=== PATIENT | male | born 1970 | race Caucasian/White ===

== ENCOUNTER → 2024-12-20 | Outpatient (CLI) | payer MEDICAID, SELFPAY ==
--- NOTE | 2024-12-20 15:30 | XR_ITS ---
Examination: CT brain head without contrast. 2-D sagittal coronal reconstructions Date and time of exam:December 20, 2024 1505 hours INDICATIONS: Intractable headaches beginning 2 years ago. COMPARISON: 08/10/2023 CTDI: vol (mGy):58.7 DLP: (mGycm):1270 Technique: Multiple CT axial sections of the brain have been obtained, 5 mm slice thickness. Contrast has not been administered. 2-D sagittal, coronal reconstructions have been obtained Low dose protocols were performed. One or more of the following dose reduction techniques were used; automated exposure control, adjustment of the mA and/or KV according to patient size, use of iterative reconstruction technique. Findings: No significant ventricular enlargement. Intra-axial or extra-axial hemorrhage density is not seen. No mass effect or midline shift Basal cisterns are not remarkable. Fourth ventricle is midline. Cranial vault intact. Impression: Negative for acute hemorrhage, mass effect or midline shift Advise clinical correlation and follow-up accordingly
== END | disposition home or self-care (01) ==
PROVIDERS: PCP Physician Assistant; Referring Provider Physician Assistant; Visit Provider Physician Assistant
DX: G43.009 Migraine without aura, not intractable, without status migrainosus (principal)
CPT/HCPCS: 70450

== ENCOUNTER 2025-03-23 11:30 | Outpatient (RCR) | payer MEDICAID, SELFPAY ==
--- NOTE | 2025-02-28 09:17 | PTNOTE_ITS ---
PT OP Initial Eval Patient Information Outpatient Physical Therapy Treatment Date: 02/28/25 Visit Reasons: left shoulder pain Medical Diagnosis: Left Shoulder Pain Treatment Dx #1: Left Shoulder Mobility Deficits Treatment Dx #2: Left Shoulder Pain Start of Care: 02/28/25 Date of Onset: 6 months ago Smoking Status Smoking Status: Never smoker Initial Assessment Subjective: Pt is a 54 y/o male reports of chronic left shoulder pain (07/08) ~ 6 months ago. Pt had xray done but does not know the result. MRI has not been completed. Pt has limitation with driving, lifting, chores, self care, cooking, cleaning, and performing recreational activities. Objective: Left Shoulder AROM Flexion: 100 deg Abduction: 80 deg External Rotation: 45 deg Internal Rotation: 20 deg Left Shoulder PROM: all motions are WFL with end range pain in all plane Left Shoulder MMTs: grossly 3-/5 HBB: Thumb at L2 Assessment: Pt demonstrate left shoulder pain with mobility deficits leading to difficulty with ADLs. Pt will attempt physical therapy if pain persist Pt will be refer eduar k to provider for further consultation. Short Term and Custodial Goals 1) Increase left shoulder AROM WFL in 6 wks to be able to perform overhead ciara ons 2) Increase left shoulder MMTs: grossly to 3+/5 in 6 wks to be able to perform lifting activities 3) Decrease shoulder pain to 2/10 in 6 wks to be able to perform recreational activities 4) Increase left scapula MMTs grossly to 3+/5 in 6 wks to be able to perform chores 5) Indep with HEP Treatment Plan 1) Manual Therapy 2) Therapeutic Activities 3) Therapeutic Exercises 4) Modalities (ice, heat) Frequency and Duration: 2 x wk for 6 wks Certification Dates: 02/28/25 to 05/30/25 Procedure Charges OP PT Eval Mod Complex 30 minutes: Yes
--- NOTE | 2025-03-05 10:35 | PT.ODAYNRPT ---
PT Outpatient Daily Note OP Daily Note Outpatient Physical Therapy Treatment Date: 03/05/25 Visit Reasons: left shoulder pain Subjective: Pt's shoulder is about the same and feels stiff Objective: Please see flow chart for list of ther ex performed Assessment: cues to correct isometric exercises to recruit proper musculatures. post heat helped with pain Plan: Continue with PT Length of Time (minutes) of Treatment: 30 Minutes Procedure Charges Therapeutic Exercise 30 minutes: Yes
--- NOTE | 2025-03-08 10:06 | PT.ODAYNRPT ---
PT Outpatient Daily Note OP Daily Note Outpatient Physical Therapy Treatment Date: 03/08/25 Visit Reasons: left shoulder pain Subjective: No new complaints or concerns. Objective: Please see flow sheet for ther ex list. Assessment: Pt performs AAROM interventions with no complaints. Plan: Continue with POC. Length of Time (minutes) of Treatment: 30 Minutes Procedure Charges Therapeutic Exercise 30 minutes: Yes
--- NOTE | 2025-03-14 09:44 | PT.ODAYNRPT ---
PT Outpatient Daily Note OP Daily Note Outpatient Physical Therapy Treatment Date: 03/14/25 Visit Reasons: left shoulder pain Subjective: Pt's shoulder feels about the same. Pt notice he can move arm a little higher with overhead motions. Objective: Please see flow chart for list of ther ex performed Assessment: progress patient to YTB 3 way with good tolerance. Post heat helped with shoulder pain Plan: Continue with PT Length of Time (minutes) of Treatment: 30 Minutes Procedure Charges Therapeutic Exercise 30 minutes: Yes
--- NOTE | 2025-03-21 10:22 | PT.ODAYNRPT ---
PT Outpatient Daily Note OP Daily Note Outpatient Physical Therapy Treatment Date: 03/21/25 Visit Reasons: left shoulder pain Subjective: No new complaints. Objective: Please see flow sheet for ther ex list. Assessment: Progression of interventions completed with muscle fatigue but no c/o pain. Applied cold pack at end of session. Plan: Continue with POC. Length of Time (minutes) of Treatment: 30 Minutes Procedure Charges Therapeutic Exercise 30 minutes: Yes
--- NOTE | 2025-03-23 11:39 | PT.ODS1RPT ---
PT OP Progress/Discharge Note Date of Service: 03/23/25 Progress Note/DC Note Progress Note/Discharge Note: DC Note Patient Information Visit Reasons: left shoulder pain Medical Diagnosis: Left Shoulder Pain Treatment Dx #1: Left Shoulder Mobility Treatment Dx #2: Left Shoulder Pain Service Discharge Date: 03/23/25 Status Subjective: Pt's shoulder feels about the same and continues to have pain. Due to pain Pt still has limitation with lifting, overhead motions, chores, self care, cooking, cleaning, and recreational activities. Pt will like to stop physical therapy and return back to provider. Objective: Left Shoulder AROM: all motions are WNL Left Shoulder MMTs: grossly 4/5 Left Scapula MMTs: grossly 3+/5 HBB AROM: Thumb at T11 Assessment: Pt functional left shoulder mobility and strength, however, no change in pain leading to difficulty with ADLs. At this time Pt will no longer benefit from physical therapy due to minimal progress towards goals. Pt instructed to follow up with provider for further consultation; thank you for your referrals. Plan: D/C home and follow up with provider Procedure Charges Therapeutic Exercise 30 minutes: Yes
== END 2025-03-28 23:59 | disposition home or self-care (01) ==
LOC: CPTX 11:30
PROVIDERS: PCP Physician Assistant; Referring Provider Physician Assistant; Visit Provider Physician Assistant
DX: M25.512 Pain in left shoulder (principal); G89.29 Other chronic pain
CPT/HCPCS: 97110; 97162

== ENCOUNTER 2025-03-26 09:10 | Emergency (ER) | payer MEDICAID, SELFPAY ==
[2025-03-26 09:11] VITALS: BMI 32.5
[2025-03-26 09:24] VITALS: BP 152/90; PULSE 72; RESP 18; TEMP 37.1; O2SAT 96
--- NOTE | 2025-03-26 09:34 | XR_ITS ---
Examination: PA lateral chest 2 views TECHNIQUE: Upright PA lateral chest 2 views Exam date and time: March 26, 2025 1046 hours Comparison June 28, 2024 INDICATIONS: Coughing beginning one week ago. FINDINGS: Normal heart size Lungs are clear. The osseous structures are intact IMPRESSION: No active disease
[2025-03-26 10:03] LABS: Strep A Rapid Negative (Negative)
--- NOTE | 2025-03-26 11:09 | EDNOTE_ITS ---
<Statement entered by Naima Strange MD - 04/01/25 02:10> As co-signing physician, I was present and available for consult prn. I concur with the plan and care as documented by the midlevel provider. Upper Respiratory Inf. RME/HPI General Chief Complaint: Flu Like Symptoms Stated Complaint: FLU SYMPTOMS X1 WEEK Time Seen by Provider: 03/26/25 09:30 Arrival date/time: 03/26/25 09:10 54-year-old male with medical history significant for hypertension presents to the emergency department today for complaints of flulike symptoms ongoing x 1 week patient worse cough, congestion, runny nose, headache and bodyaches Limitations: no limitations Related Data Home Medications ?Medication ?Instructions ?Recorded ?Confirmed nitroglycerin 0.4 mg sublingual 0.4 mg SL PRN ##0 08/2907/22/21 tablet (Nitrostat) clopidogrel 75 mg tablet (Plavix) 75 mg PO DAILY ##0 1 12/25/11 07/22/21 aspirin 325 mg tablet 325 mg PO QDAY 08/01/1906/30 isosorbide dinitrate 10 mg tablet 10 mg PO DAILY 08/0107/22/21 sertraline 100 mg tablet 100 mg PO QDAY 08/01/1906/30 tizanidine 4 mg capsule 4 mg PO TID 08/01/19 1 topiramate 25 mg tablet 25 mg PO BID 08/01/19 zolpidem 10 mg tablet 10 mg PO HS 05/08/20 1 hydrocodone bitartrate 10 mg 10 mg PO QAM 05/27/20 capsule, oral only, extended rel 12 hr (Zohydro ER) Previous Rx's ?Medication ?Instructions ?Recorded lisinopril 10 mg tablet 10 mg PO QDAY #30 tabs 05/09 azithromycin 250 mg tablet See Rx Instructions PO .COM PLEX #6 07/22/21 (Zithromax) tabs loratadine 10 mg tablet 10 mg PO QDAY #30 tabs 10/03 promethazine-DM 6.25 mg-15 mg/5 mL 5 ml PO Q6H PRN cou gh #200 mL 11/05/22 oral syrup hydrocodone 5 mg-acetaminophen 325 1 tab PO BID PRN pa in #8 tabs 01/11/24 mg tablet gabapentin 100 mg capsule 100 mg PO TID #20 caps 01/21 ibuprofen 800 mg tablet (IBU) 800 mg PO Q8H #20 tabs 0 01/21/24 amoxicillin 875 mg-potassium 1 tab PO BID 7 days #14 t abs 03/26/25 clavulanate 125 mg tablet benzonatate 100 mg capsule 100 mg PO TID #14 caps 02/28 07/23 prednisone 20 mg tablet 20 mg PO BID 3 days #6 tabs 03/26/25 Allergies Allergy/AdvReac Type Severity Reaction Status Date / Time gabapentin Allergy Intermediate Nausea Verified 03/26/25 09:11 Review of Systems Review of Systems Systems Reviewed: All systems reviewed, normal except as documented Constitutional Constitutional: Reports system reviewed and no additional complaints, except as documented, Denies fever(s) and Reports headache(s) Eyes Eyes: Reports system reviewed and no additional complaints, except as documented and Denies blurry vision ENT Ears, Nose, Mouth, and Throat: Reports system reviewed and no additional complaints, except as documented, Reports facial pain, Reports headache(s), Reports nasal congestion, Reports nasal discharge, Reports sinus pain and Reports sinus pressure Cardiovascular Cardiovascular: Reports system reviewed and no additional complaints, except as documented, Denies chest pain and Denies dyspnea Respiratory Respiratory: Reports system reviewed and no additional complaints, except as documented, Denies chest congestion, Denies cough and Denies dyspnea Gastrointestinal Gastrointestinal: Reports system reviewed and no additional complaints, except as documented and Denies abdominal pain Integumentary/Breasts Skin/Breast: Reports system reviewed and no additional complaints, except as documented and Denies rash Neurologic Neurologic: Reports system reviewed and no additional complaints, except as documented, Reports as per HPI and Reports headache(s) Past Medical History Past Medical History NEUROLOGIC: Negative Neurological Disorders CARDIAC: Positive Cardiac Disorders, Myocardial Infarction, Angina and Hypertension; Negative Congestive Heart Failure RESPIRATORY: Positive Pneumonia and Sleep Apnea; Negative Chronic Obstructive Pulmonary Disease (COPD) or Asthma GASTROINTESTINAL: Negative Gastrointestinal Disorders or Hepatitis GENITOURINARY: Negative Genitourinary Disorders or Renal Disease MUSCULOSKELETAL: Negative Musculoskeletal Disorders ENDOCRINE: Negative Endocrine Disorders, Diabetes Mellitus Type 1 or Diabetes Mellitus Type 2 HEMATOLOGIC: Negative Blood Disorders or Sickle Cell Disease PSYCHO/SOCIAL: Positive Depression and Anxiety OTHER HISTORY: Positive Hospitalization and Chicken Pox; Negative Autoimmune Disease, Anesthesia Reactions, MRSA, VRSA, Vancomycin- Resistant Enterococci, Human Immunodeficiency Virus (HIV), Measles, Mumps, Rubella (Citizen [place] Measles), Pertussis, Clostridium Difficile or Cancer Family History FAMILY HISTORY: Positive Family Respiratory Disorders and Family Cardiac Disorders Surgical History SURGICAL: Positive Cardiac Surgery, Coronary Stent and Angiogram; Negative Endocrine Surgery, Thyroidectomy, Ear Surgery, Abdominal Surgery, Nephrectomy, Joint Replacement, Neurologic Surgery or Vasectomy Social History SMOKING STATUS: Former smoker SECOND HAND EXPOSURE: No SUBSTANCE USE: does not use ED Exam General Limitations: Present no limitations General appearance: Present alert and in no apparent distress Head Head exam: Present atraumatic Eye Eye exam: Present normal appearance, PERRL and EOMI ENT ENT exam: Present normal exam, normal oropharynx and mucous membranes moist Neck Neck exam: Present normal inspection, full ROM and trachea midline Chest Chest inspection: Present normal inspection and symmetric chest wall rise Respiratory Respiratory exam: Present normal lung sounds bilaterally Cardiovascular Cardiovascular exam: Present regular rate, normal rhythm and normal heart sounds Abdominal Exam Abdominal exam: Present soft and normal bowel sounds Extremities Exam Extremities exam: Present normal inspection and full ROM Back Exam Back exam: Present normal inspection and full ROM Neurological Exam Neurological exam: Present alert, oriented X3 and CN II-XII intact Psychiatric Psychiatric exam: Present normal affect and normal mood Skin Skin exam: Present warm, dry, intact and normal color Course Quality Measures none Orders Category Date Time Status Bedside Influenza A&B Antigen Test NOW Care 03/26/25 09:31 Completed XR chest 2V Stat Exams 03/26/25 09:34 Completed Strep A Rapid Stat Lab 03/26/25 09:44 Completed Vital Signs Vital signs: Vital Signs Temperature 98.7 F 03/26/25 09:24 Pulse Rate 72 03/26/25 09:24 Respiratory Rate 18 03/26/25 09:24 Blood Pressure 152/90 H 03/26/25 09:24 Pulse Oximetry (%) 96 03/26/25 09:24 Oxygen Delivery Method Room Air 03/26/25 09:24 O2 sats is 96% room air within normal limits Upper Respiratory Infection MDM Narrative MDM Narrative:: 54-year-old male with medical history significant for hypertension presents to the emergency department today for complaints of flulike symptoms ongoing x 1 week patient worse cough, congestion, runny nose, headache and bodyaches On exam patient well-appearing patient is not appear ill or toxic in no acute distress Imaging and lab work obtained no acute emergent findings noted Symptoms are consistent with sinus pressure and sinusitis patient be treated with accordingly Patient discharged home in no distress to follow-up with primary care doctor in the next 24 to 48 hours and for any worsening symptoms to return to the ER immediately Patient data External records reviewed:: [facility] previous records Clinical information provided by:: patient Social determinants that could affect healthcare access:: none Patient has the following chronic illnesses:: None How is presenting disease/condition affected by chronic disease/condition?: no chronic disease Evaluation data The following diagnostics were reviewed and interpreted by me:: lab results and radiology exam(s) Lab and/or radiology exams considered but not ordered:: Labs radiology obtained Interpretation Summary: Reviewed by me Medications / Prescriptions Medications or Prescriptions considered but not ordered:: Given Medication administrations:: Given Consultations Consultation(s) initiated? (list below): No Diagnosis Upper Respiratory Differential Diagnosis: upper respiratory infection, sinusitis, viral infection, bronchitis and influenza Most likely diagnosis given after review of the tests above:: URI Admission Indicated Admission indicated?: not indicated Admission Request Was there a request for admission?: No Disposition Plan Disposition Plan: Discharge Discharge Attestation Discharge Attestation: The patient and all family members were given an opportunity to ask questions and understood the discharge instructions. Discharge instructions specifically effects, indications for sooner follow up or return to the emergency department, and the expected course of current diagnosis. Patient condition: Stable Discharge Plan Plan Patient Disposition: HOME (Self Care) Disposition Comment: Stable Prescriptions/Referrals Prescriptions/Med Rec: New prednisone 20 mg tablet 20 mg PO BID 3 Days Qty: 6 0RF benzonatate 100 mg capsule 100 mg PO TID Qty: 14 0RF amoxicillin-pot clavulanate 875-125 mg tablet 1 tab PO BID 7 Days Qty: 14 0RF No Action nitroglycerin [Nitrostat] 0.4 MG tablet, sublingual 0.4 mg SL PRN Qty: 0 clopidogrel [Plavix] 75 MG tablet 75 mg PO DAILY Qty: 0 isosorbide dinitrate 10 mg Tablet 10 mg PO DAILY aspirin 325 mg Tablet 325 mg PO QDAY sertraline 100 mg Tablet 100 mg PO QDAY topiramate 25 mg Tablet 25 mg PO BID tizanidine 4 mg Capsule 4 mg PO TID zolpidem 10 mg Tablet 10 mg PO HS lisinopril 10 mg tablet 10 mg PO QDAY Qty: 30 0RF hydrocodone bitartrate [Zohydro ER] 10 mg Capsule, Oral Only, Er 12hr 10 mg PO QAM azithromycin [Zithromax] 250 mg tablet See Rx Instructions .ROUTE .COMPLEX Qty: 6 0RF Rx Instructions: take 500 mg today (day 1), then 250 mg for 4 days (days 2-5) hydrocodone-acetaminophen 5-325 mg tablet 1 tab PO BID MDD 10 PRN (Reason: pain) Qty: 8 0RF promethazine-DM 6.25-15 mg/5 mL syrup 5 ml PO Q6H PRN (Reason: cough) Qty: 200 0RF loratadine 10 mg tablet 10 mg PO QDAY Qty: 30 0RF ibuprofen [IBU] 800 mg tablet 800 mg PO Q8H Qty: 20 0RF gabapentin 100 mg capsule 100 mg PO TID Qty: 20 0RF Referrals: Kurt Aguila MD [Primary Care Provider] - In 1 week Problem List Clinical Impression: Sinusitis, Cough Patient/Caregiver Discharge Instructions Education Materials: Preventing Sinusitis Additional Instructions: Please follow up with your primary care doctor in the next 24-48hrs for any worsening symptoms return here immediately Print Language: Turkish Stand Alone Forms: [employer] Award Info., Patient Portal Info Letter PA/PRECISION OPTICS TECHNICIAN Supervising Physician PA/PRECISION OPT[employer] TECHNICIAN Supervising Physician: Dr. STRANGE
[2025-03-26 12:40] VITALS: BP 128/78; PULSE 68; RESP 16; O2SAT 99
== END 2025-03-26 12:40 | disposition home or self-care (01) ==
PROVIDERS: Nurse Practitioner Primary Care; Emergency Provider Emergency Medicine; PCP Family Medicine
DX: J32.9 Chronic sinusitis, unspecified (principal); Z87.891 Personal history of nicotine dependence
CPT/HCPCS: 71046; 87400; 87651; 99283

== ENCOUNTER → 2025-06-11 | Outpatient (CLI) | payer MEDICAID, SELFPAY ==
--- NOTE | 2025-06-11 10:00 | XR_ITS ---
MRI shoulder, right, without contrast. Date and time: June 11, 2025 and 58 hours INDICATION: Lifting injury to the arm 18 months ago with shoulder pain loss of function numbness stiffness decreased range of motion 30% abduction Technique: Multiple axial, sagittal and coronal sections of the shoulder have been obtained. Siemens high-resolution 1.5 Lesley MRI scanner is utilized. Axial fat-suppressed sections, TR 2350, TE 18 T2-weighted coronal fat-saturated images, TR 3500, TE 7100 T1-weighted coronal images, TR 500, TE 15 T2-weighted sagittal fat-saturated images, TR 3500, TE 57 T1-weighted sagittal sections, TR 504, TE 13. Findings: Supraspinatus tendon insertion is intact. Infraspinatus tendon insertion is intact. Subscapularis insertion is intact. Subscapularis bursa is not seen. Long head of the biceps is in the bicipital groove. No definite tear of the biceps superior labral anchor is seen. Retraction of the musculotendinous junction of the rotator cuff is not seen . Tendinosis pattern is moderate. Distance between the acromium and humeral head is 6.2 mm Atrophy of the supraspinatus muscle is moderate. Atrophy of the infraspinatus muscle is mild. Sagittal sections demonstrate a horizontal acromion. Acromioclavicular joint demonstrates moderate osteoarthritis. Osacromiale is not identified. Anterior superior, posterior labral tears. Bony glenoid fossa on the sagittal sections does not demonstrate osseous defect. Occult fracture or area of avascular necrosis is not seen. Acromioclavicular joint separation is not visible. Defect in the posterolateral margin of the humeral head is not seen Impression: Rotator cuff intact Anterior superior, posterior labral tears
--- NOTE | 2025-06-11 10:30 | XR_ITS ---
MRI shoulder, left, without contrast. Date and time: June 11, 2025 1158 hours INDICATIONS: Lifting injury to the shoulder 18 months ago with shoulder pain loss of function weakness decreased range of motion Technique: Multiple axial, sagittal and coronal sections of the shoulder have been obtained. Siemens high-resolution 1.5 Lesley MRI scanner is utilized. Axial fat-suppressed sections, TR 2350, TE 18 T2-weighted coronal fat-saturated images, TR 3500, TE 7100 T1-weighted coronal images, TR 500, TE 15 T2-weighted sagittal fat-saturated images, TR 3500, TE 57 T1-weighted sagittal sections, TR 504, TE 13. Findings: Supraspinatus tendon insertion is intact. Infraspinatus tendon insertion is intact. Subscapularis insertion is intact. Subscapularis bursa is not seen. Long head of the biceps is in the bicipital groove. No definite tear of the biceps superior labral anchor is seen. Retraction of the musculotendinous junction of the rotator cuff is not seen . Tendinosis pattern is mild. Distance between the acromium and humeral head is 9.2 mm Atrophy of the supraspinatus muscle is mild . Atrophy of the infraspinatus muscle is mild. Sagittal sections demonstrate a horizontal acromion. Acromioclavicular joint demonstrates mild osteoarthritis . Osacromiale is not identified. Fraying and irregularity anterior superior posterior labral margins. Bony glenoid fossa on the sagittal sections does not demonstrate osseous defect. Occult fracture or area of avascular necrosis is not seen. Acromioclavicular joint separation is not visible. Defect in the posterolateral margin of the humeral head is not seen Impression: Rotator cuff intact Fraying and irregularity anterior superior posterior labral margins
== END | disposition home or self-care (01) ==
PROVIDERS: PCP Family Medicine; Referring Provider Physician Assistant; Visit Provider Physician Assistant
DX: M19.011 Primary osteoarthritis, right shoulder (principal); M19.012 Primary osteoarthritis, left shoulder; S49.91XS Unspecified injury of right shoulder and upper arm, sequela; S49.92XS Unspecified injury of left shoulder and upper arm, sequela; X58.XXXS Exposure to other specified factors, sequela
CPT/HCPCS: 73221